=== PATIENT | female | born 1990 | race Two or more races ===

== ENCOUNTER 2022-12-29 15:23 | Emergency (ER) | payer OTHER ==
[~2022-12-29] VITALS: Ht 162.6 cm; Wt 67.1 kg
[2022-12-29] MEDS ORDERED: IBUPROFEN 400 MG TABLET PO ONE (16:30)
[2022-12-29] MEDS ORDERED: HYDROCODONE/APAP 10-325 MG TABLET PO ONE (16:30)
[2022-12-29] MEDS ORDERED: ACETAMINOPHEN 325 MG TABLET PO ONE (16:30)
[2022-12-29] MEDS ORDERED: ACETAMINOPHEN 325 MG TABLET ONE (16:32)
[2022-12-29] MEDS ORDERED: IBUPROFEN 400 MG TABLET ONE (16:33)
[2022-12-29] MEDS ORDERED: HYDROCODONE/APAP 10-325 MG TABLET ONE (16:33)
--- NOTE | 2022-12-29 18:02 | NUR ---
Patient discharged to home in stable condition. Written and verbal after care instructions given. Patient verbalizes understanding of instructions. Stressed follow up or return to ER for worsening s/s.
== END 2022-12-29 18:03 | disposition home or self-care (01) ==
LOC: ER 15:27
DX: R51.9 Headache, unspecified (principal); M54.9 Dorsalgia, unspecified; V49.40XA Driver injured in collision with unspecified motor vehicles in traffic accident, initial encounter; Y92.410 Unspecified street and highway as the place of occurrence of the external cause
CPT/HCPCS: 70450; 71045; 72125; A4663